=== PATIENT | female | born 1970 | race Caucasian/White ===

== ENCOUNTER 2021-07-05 22:41 | Emergency (ER) | payer SELFPAY ==
[2021-07-05] MEDS ORDERED: Triamcinolone Acetonide 40 MG/ML 1 ML SDV ONE (23:48)
[2021-07-05] MEDS ORDERED: diphenhydrAMINE 25 MG Cap ONE (23:48)
[2021-07-05] MEDS ORDERED: diphenhydrAMINE 50 MG/ML SDV ONE (23:53)
[2021-07-05] MEDS ORDERED: Triamcinolone Acetonide 40 MG/ML 1 ML SDV IM ONE (23:55)
--- NOTE | 2021-07-05 23:55 | EDM.PDOC ---
ED HPI GENERAL MEDICAL PROBLEM - General Chief Complaint: Skin Complaint Stated Complaint: RASH Time Seen by Provider: 07/05/21 23:05 Source of Information: Reports: Patient History Limitations: Reports: No Limitations - History of Present Illness INITIAL COMMENTS - FREE TEXT/NARRATIVE: 42-year-old female presents to the ED complaining of a rash. Approximately 1 week ago patient started itching her left shoulder where a rash developed. 2 days later she began having a similar rash over her entire body. She describes the progression is gradual. The rash is itchy and painful. This is the worst rash she is ever had patient has a history of psoriasis. 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 Negative for: Covid vaccination, swollen joints, EtOH, recreational drugs, chest pain, shortness of breath, presyncope/syncope, constipation/diarrhea, black tarry stool, blood in the stool, nausea vomiting. Previous medical history: Psoriasis, family history of arthritis. Treatments [employer]: Reports: Acetaminophen, NSAIDS - Related Data Allergies Allergy/AdvReac Type Severity Reaction Status Date / Time [facility] soap Allergy Rash Uncoded 07/05/21 23:12 Home Meds: Home Meds NK [No Known Home Meds] 07/05/21 [History] Past Medical History HEENT History: Reports: None Cardiovascular History: Reports: None Respiratory History: Reports: None Gastrointestinal History: Reports: None Genitourinary History: Reports: None CHEF History: Reports: None Musculoskeletal History: Reports: None Neurological History: Reports: None Psychiatric History: Reports: None Endocrine/Metabolic History: Reports: None Dermatologic History: Reports: Psoriasis, Other (See Below) Other Dermatologic History: Shingles - Past Surgical History HEENT Surgical History: Reports: None Cardiovascular Surgical History: Reports: None Female Surgical History: Reports: None Oncologic Surgical History: Reports: None Social & Family History - Tobacco Use Tobacco Use Status *Q: Never Tobacco User Second Hand Smoke Exposure: No - Caffeine Use Caffeine Use: Reports: Coffee Other Caffeine Use: 2 cups coffee a day - Recreational Drug Use Recreational Drug Use: No ED ROS GENERAL - Review of Systems Review Of Systems: Comprehensive ROS is negative, except as noted in HPI. Constitutional: Reports: Fatigue. Denies: Fever HEENT: Reports: Vision Change (1 week) Respiratory: Reports: No Symptoms Cardiovascular: Reports: No Symptoms GI/Abdominal: Reports: No Symptoms Musculoskeletal: Reports: Other (Body aches) Skin: Reports: Rash ED EXAM, SKIN/RASH Exam: See Below Text/Narrative:: 50-year-old female presents to the ED for rash found sitting in bay 1 on stretcher actively itching multiple locations. Patient in moderate distress due to itching and pain. Patient is alert and oriented 3/3 GCS 4 5 6. Speaking in full sentences. No obvious trauma Exam Limited By: No Limitations General Appearance: Alert, WD/WN, Moderate Distress (Pruritus) Eye Exam: Bilateral Eye: EOMI, PERRL Ears: Hearing Grossly Normal Nose: Nasal Drainage, Clear Rhinorrhea, Other (Pale mucosa) Throat/Mouth: Normal Lips, Normal Teeth, Normal Gums, Normal Oropharynx, Normal Voice, No Airway Compromise, Other (1 round lesion center of patient's tongue similar to rash on other parts of the body no other mucous membrane involvement, no sloughing of the skin in the mouth, no swelling in the back of the airway no signs of postnasal drip) Head: Atraumatic, Normocephalic, Other (Rash spared) Neck: Normal Inspection, Supple, Non-Tender, Full Range of Motion, Other (Mostly rash spared). No: Lymphadenopathy (R), Lymphadenopathy (L) Respiratory/Chest: No Respiratory Distress, Lungs Clear, Normal Breath Sounds, No Accessory Muscle Use, Chest Non-Tender. No: Respiratory Distress, Wheezing, Accessory Muscle Use Cardiovascular: Normal Peripheral Pulses, Regular Rate, Rhythm, No Edema, No Gal lop, No JVD, No Murmur, No Rub GI/Abdominal: Normal Bowel Sounds, Soft, Non-Tender, No Organomegaly, No Distention, No Abnormal Bruit, No Mass Back Exam: Normal Inspection, Full Range of Motion, NT Extremities: Normal Inspection, Normal Range of Motion, Non-Tender, No Pedal Edema, Normal Capillary Refill Neurological: Alert, Oriented, Normal Cognition, Normal Gait, Normal Reflexes Psychiatric: Normal Affect, Normal Mood Skin: Rash (Morbilliform rash, with an erythematic base with scaling, from the neck down, no herald patch, no pattern, all lesions appear to be in the same phase of healing, no vesicles) Location, Skin: Chest, Abdomen, Back, Pelvis, Upper Extremity, Right, Upper Extremity, Left, Lower Extremity, Right, Lower Extremity, Left, Genital, Groin Characteristics: Maculopapular, Erythematous Associated features: Scaling, Rough Course - Orders/Labs/Meds Orders: Active Orders 24 hr Category Date Time Status Chest 1V Frontal [CR] Stat Exams 07/05/21 23:57 Taken Labs: Laboratory Tests 07/05/21 07/05/21 07/05/21 Range/Units 23:30 23:30 23:39 WBC 8.0 (4.0-11.0) K/uL RBC 4.29 (3.80-5.80) M/uL Hgb 13.5 (11.5-16.5) g/dL Hct 39.6 (37.0-47.0) % MCV 92 (76-96) fL MCH 31.5 (27.0-32.0) pg MCHC 34.1 (31.0-35.0) g/dL RDW 12.8 (11.0-16.0) % Plt Count 329 (150-500) K/uL MPV 9.5 (6.0-10.0) fL Neut % (Auto) 56.8 (45.0-70.0) % Lymph % (Auto) 30.2 (20.0-40.0) % [place] % (Auto) 11.0 H (3.0-10.0) % Eos % (Auto) 1.4 (1.0-5.0) % Baso % (Auto) 0.6 H (0.0-0.5) % Neut # (Auto) 4.52 (2.00-7.50) K/uL Lymph # (Auto) 2.41 (1.50-4.00) K/uL [place] # (Auto) 0.88 H (0.20-0.80) K/uL Eos # (Auto) 0.11 (0.04-0.40) K/uL Baso # (Auto) 0.05 (0.02-0.10) K/uL ESR 7 (0-20) mm/hr Sodium 138 (136-145) mmol/L Potassium 3.5 (3.5-5.1) mmol/L Chloride 105 (98-107) mmol/L Carbon Dioxide 29.3 (21.0-32.0) mmol/L Anion Gap 7.2 (5.0-15.0) mmol/L BUN 20 (8-26) mg/dL Creatinine 0.83 (0.55-1.02) mg/dL Est Cr Clr Drug Dosing TNP Estimated GFR (MDRD) > 60 (>60) MLS/MIN BUN/Creatinine Ratio 24.1 (6-25) Glucose 95 (74-100) mg/dL Calcium 8.8 (8.5-10.1) mg/dL C-Reactive Protein 1.5 (0.0-3.0) mg/L Urine Color Yellow Urine Appearance Clear (CLEAR) Urine pH 6.5 (5.0-8.0) Ur Specific [place] >= 1.030 (1.003-1.030) Urine Protein Negative (NEGATIVE) mg/dL Urine Glucose (UA) Negative (NEGATIVE) mg/dL Urine Ketones Negative (NEGATIVE) mg/dL Urine Occult Blood Negative (NEGATIVE) Urine Nitrite Negative (NEGATIVE) Urine Bilirubin Negative (NEGATIVE) Urine Urobilinogen 1.0 (0.2-1.0) E.U./dL Ur Leukocyte Esterase Negative (NEGATIVE) Urine RBC Not seen /HPF Urine WBC Not seen /HPF Ur Squamous Epith Cells Few /HPF Urine Bacteria Few /HPF Urine Opiates Screen (NEGATIVE) Ur Oxycodone Screen (NEGATIVE) Urine Methadone Screen (NEGATIVE) Ur Barbiturates Screen (NEGATIVE) Ur Tricyclics Screen (NEGATIVE) Ur Phencyclidine Scrn (NEGATIVE) Ur Amphetamine Screen (NEGATIVE) U Methamphetamines Scrn (NEGATIVE) Urine MDMA Screen (NEGATIVE) U Benzodiazepines Scrn (NEGATIVE) U Cocaine Metab Screen (NEGATIVE) U Marijuana (THC) Screen (NEGATIVE) SARS-CoV-2 RNA (PETAR) (NEGATIVE) 07/05/21 07/05/21 Range/Units 23:39 23:54 WBC (4.0-11.0) K/uL RBC (3.80-5.80) M/uL Hgb (11.5-16.5) g/dL Hct (37.0-47.0) % MCV (76-96) fL MCH (27.0-32.0) pg MCHC (31.0-35.0) g/dL RDW (11.0-16.0) % Plt Count (150-500) K/uL MPV (6.0-10.0) fL Neut % (Auto) (45.0-70.0) % Lymph % (Auto) (20.0-40.0) % [place] % (Auto) (3.0-10.0) % Eos % (Auto) (1.0-5.0) % Baso % (Auto) (0.0-0.5) % Neut # (Auto) (2.00-7.50) K/uL Lymph # (Auto) (1.50-4.00) K/uL [place] # (Auto) (0.20-0.80) K/uL Eos # (Auto) (0.04-0.40) K/uL Baso # (Auto) (0.02-0.10) K/uL ESR (0-20) mm/hr Sodium (136-145) mmol/L Potassium (3.5-5.1) mmol/L Chloride (98-107) mmol/L Carbon Dioxide (21.0-32.0) mmol/L Anion Gap (5.0-15.0) mmol/L BUN (8-26) mg/dL Creatinine (0.55-1.02) mg/dL Est Cr Clr Drug Dosing Estimated GFR (MDRD) (>60) MLS/MIN BUN/Creatinine Ratio (6-25) Glucose (74-100) mg/dL Calcium (8.5-10.1) mg/dL C-Reactive Protein (0.0-3.0) mg/L Urine Color Urine Appearance (CLEAR) Urine pH (5.0-8.0) Ur Specific [place] (1.003-1.030) Urine Protein (NEGATIVE) mg/dL Urine Glucose (UA) (NEGATIVE) mg/dL Urine Ketones (NEGATIVE) mg/dL Urine Occult Blood (NEGATIVE) Urine Nitrite (NEGATIVE) Urine Bilirubin (NEGATIVE) Urine Urobilinogen (0.2-1.0) E.U./dL Ur Leukocyte Esterase (NEGATIVE) Urine RBC /HPF Urine WBC /HPF Ur Squamous Epith Cells /HPF Urine Bacteria /HPF Urine Opiates Screen Negative (NEGATIVE) Ur Oxycodone Screen Negative (NEGATIVE) Urine Methadone Screen Negative (NEGATIVE) Ur Barbiturates Screen Negative (NEGATIVE) Ur Tricyclics Screen Negative (NEGATIVE) Ur Phencyclidine Scrn Negative (NEGATIVE) Ur Amphetamine Screen Negative (NEGATIVE) U Methamphetamines Scrn Negative (NEGATIVE) Urine MDMA Screen Negative (NEGATIVE) U Benzodiazepines Scrn Negative (NEGATIVE) U Cocaine Metab Screen Negative (NEGATIVE) U Marijuana (THC) Screen Negative (NEGATIVE) SARS-CoV-2 RNA (PETAR) Negative (NEGATIVE) Meds: Medications Discontinued Medications Generic Name Dose Route Start Last Admin Trade Name Freq PRN Reason Stop Dose Admin Diphenhydramine HCl Confirm 07/05/21 23:48 07/05/21 23:58 Diphenhydramine 25 Mg Cap Administered 07/05/21 23:49 Not Given Dose 25 mg .ROUTE .STK-MED ONE Diphenhydramine HCl Confirm 07/05/21 23:53 07/05/21 23:58 Diphenhydramine 50 Mg/Ml Sdv Administered 07/05/21 23:54 Not Given Dose 50 mg .ROUTE .STK-MED ONE Diphenhydramine HCl 25 mg 07/05/21 23:56 07/05/21 23:50 Diphenhydramine 50 Mg/Ml Sdv IVPUSH 07/05/21 23:57 25 mg ONETIME ONE Administration Diphenhydramine HCl 25 mg 07/05/21 23:56 07/05/21 23:00 Diphenhydramine 25 Mg Cap PO 07/05/21 23:57 25 mg ONETIME ONE Administration Triamcinolone Acetonide Confirm 07/05/21 23:48 07/05/21 23:59 Triamcinolone Acetonide 40 Mg/Ml 1 Ml Sdv Administered 07/05/21 23:49 Not Given Dose 40 mg .ROUTE .STK-MED ONE Triamcinolone Acetonide 80 mg 07/05/21 23:55 07/06/21 00:00 Triamcinolone Acetonide 40 Mg/Ml 1 Ml Sdv IM 07/05/21 23:56 80 mg ONETIME ONE Administration Departure - Departure Time of Disposition: 00:20 Disposition: Home, Self-Care 01 Condition: Good Clinical Impression: Morbilliform rash - Discharge Information *PRESCRIPTION DRUG MONITORING PROGRAM REVIEWED*: No *COPY OF PRESCRIPTION DRUG MONITORING REPORT IN PATIENT SYED: No Instructions: Hives, Rash, Adult Referrals: PCP,Unknown [Primary Care Provider] - Forms: ED Department Discharge Additional Instructions: Take Zytec OTC daily. May take 2 zyrtec if needed. Follow up in 1-2 days in clinic. Return to ER if shortness of breath or difficulty breathing or feeling lightheadedness or faint.. Sepsis Event Note (ED) - Evaluation Sepsis Screening Result: No Definite Risk - My Orders Last 24 Hours: My Active Orders 07/05/21 23:57 Chest 1V Frontal [CR] Stat - Assessment/Plan Last 24 Hours: My Active Orders 07/05/21 23:57 Chest 1V Frontal [CR] Stat Assessment:: 1. Morbilliform rash 2. Fatigue 3. Body aches 4. Cough 5. Headache Plan: 50-year-old female presents for evaluation of a rash. This is likely consistent with a allergic phenomenon (eczema, hives, contact dermatitis, possible bedbug exposure, environmental exposure, drug reaction) this appears to be at this point an isolated event without any signs of angioedema, respiratory compromise, shock, serious systemic reaction. No signs of a serious infection, super imposed cellulitis, vasculitis, or other skin manifestations of serious underlying disease. Supportive outpatient management is indicated, medications for discharge noted below. Close follow-up with primary care provider as documented in discharge instructions return if wheezing, progressive shortness of breath, facial or throat/tongue swelling, worsening rash, fever, or other new symptoms. ABC, history, exam, labsCBC BMP UA, U tox, ESR CRP, chest x-ray, Benadryl 25 mg p.o., Benadryl 25 mg IV, 80 mg of Kenalog 40, patient education/shared decision making, treatment plan was explained to the patient all questions were asked to patient satisfaction, patient agreed with the plan. Patient to take [id number] Zyrtec 10 mg daily for pruritus, patient to follow-up with local clinic regarding rash. Patient understands plan is symptomatic treatment only discussed that the patient needs to figure out what triggers her rash. Patient was discharged in stable condition
[2021-07-05] MEDS ORDERED: diphenhydrAMINE 50 MG/ML SDV IVPUSH ONE (23:56)
[2021-07-05] MEDS ORDERED: diphenhydrAMINE 25 MG Cap PO ONE (23:56)
--- NOTE | 2021-07-06 11:01 | CR ---
DATE OF SERVICE: 07/05/21 CLINICAL DATA: rash AP CHEST: No priors. The heart size is normal. There is a nodule overlying the right lower lung consistent with nipple shadow. The lungs are otherwise clear. No pneumothorax. No pleural effusions. No evidence of acute intrathoracic disease. [id number] [facility]
== END 2021-07-06 00:19 | disposition home or self-care (01) ==
LOC: LB.ED 22:41
DX: B05.9 Measles without complication (principal); Z91.048 Other nonmedicinal substance allergy status; Z20.822 Contact with and (suspected) exposure to COVID-19
CPT/HCPCS: 36415; 71045; 80048; 80307; 81001; 85025; 85651; 86140; 96372; 96374; 99283-25; A9270-GY; J1200; J3301; U0002

== ENCOUNTER → 2022-01-19 16:10 | Emergency (ER) | payer MEDICAID | LOC: LB.ED 16:10 | DX: Z53.21 Procedure and treatment not carried out due to patient leaving prior to being seen by health care provider (principal) | CPT/HCPCS: 99281 ==

== ENCOUNTER 2024-06-11 18:47 | Emergency (ER) | payer MEDICAID ==
[2024-06-11] MEDS: cefTRIAXone 1 GM Vial IM ONE (20:15)
[2024-06-11] MEDS: cefTRIAXone 1 GM Vial ONE (20:21)
== END 2024-06-11 20:25 | disposition home or self-care (01) ==
LOC: LB.ED 18:47
DX: K04.7 Periapical abscess without sinus (principal); K02.9 Dental caries, unspecified; Z91.048 Other nonmedicinal substance allergy status
CPT/HCPCS: 96372; 99283; J0696